=== PATIENT | male | born 1985 | race Caucasian/White ===

== ENCOUNTER 2018-02-23 06:58 | Day surgery (SDC) | payer BC ==
[2018-02-23] MEDS ORDERED: SOD CHLORIDE 0.9% 1,000 ML IV (09:00)
[2018-02-23] MEDS ORDERED: CEFAZOLIN 1 GM/50 ML (PMX) 50 ML IVPB (09:00)
[2018-02-23] MEDS ORDERED: morphine (1 MG/ML) 10ML SYRINGE IV ×2 (09:00)
[2018-02-23] MEDS ORDERED: LABETALOL HCL 20MG INJ IV (09:00)
[2018-02-23] MEDS ORDERED: ALBUTEROL 0.083% (NEB) 2.5 MG/3 ML AMP HHN (09:00)
[2018-02-23] MEDS ORDERED: MEPERIDINE 25 MG INJ IV (09:00)
[2018-02-23] MEDS ORDERED: ONDANSETRON 4 MG INJ IV (09:00)
[2018-02-23] MEDS ORDERED: FENTAnyl 50 MCG/ML VIAL IV ×2 (09:00)
[2018-02-23] MEDS ORDERED: HYDROmorphONE 1 MG/5 ML IV SYRINGE IV ×2 (09:00)
[2018-02-23] MEDS ORDERED: DIPHENHYDRAMINE 50 MG INJ IV (09:00)
[2018-02-23] MEDS ORDERED: OXYCODONE/ACETAMINOPHEN (5/325) TAB PO ×2 (09:00)
[2018-02-23] MEDS ORDERED: ONDANSETRON 4 MG INJ (09:38)
[2018-02-23] MEDS ORDERED: MIDAZOLAM 1 MG/ML 2 ML INJ (09:38)
[2018-02-23] MEDS ORDERED: CEFAZOLIN 1 GM INJ (09:38)
[2018-02-23] MEDS ORDERED: LIDOCAINE 2% (SDV) 5 ML INJ (09:38)
[2018-02-23] MEDS ORDERED: PROPOFOL 40 ML (09:38)
[2018-02-23] MEDS ORDERED: FENTAnyl 50 MCG/ML VIAL (09:38)
[2018-02-23] MEDS ORDERED: FAMOTIDINE 20 MG INJ (09:38)
[2018-02-23] MEDS ORDERED: KETOROLAC 30 MG INJ (09:38)
[2018-02-23] MEDS ORDERED: DEXAMETHASONE 4 MG/ML 1 ML INJ (09:38)
[2018-02-23] MEDS ORDERED: ROCURONIUM 50 MG INJ (09:49)
[2018-02-23] MEDS ORDERED: SUGAMMADEX SODIUM 200 MG/2 ML VIAL IV (10:32)
== END 2018-02-23 12:05 | disposition home or self-care (01) ==
LOC: SDS 06:58
DX: K62.89 Other specified diseases of anus and rectum (principal); E03.9 Hypothyroidism, unspecified
CPT/HCPCS: 45330

== ENCOUNTER 2018-12-07 10:31 | Day surgery (SDC) | payer BC ==
[2018-12-07] MEDS ORDERED: MIDAZOLAM 1 MG/ML 2 ML INJ (13:11)
[2018-12-07] MEDS ORDERED: FENTAnyl 50 MCG/ML VIAL (13:11)
[2018-12-07] MEDS ORDERED: HYDROGEN PEROXIDE 118 ML (13:15)
[2018-12-07] MEDS: BUPIVACAINE 0.5%/EPI (SDV) 30 ML INJ (13:44)
[2018-12-07] MEDS ORDERED: ROCURONIUM 50 MG INJ (14:06)
[2018-12-07] MEDS ORDERED: PROPOFOL 40 ML (14:06)
[2018-12-07] MEDS ORDERED: CEFAZOLIN 1 GM INJ (14:06)
[2018-12-07] MEDS ORDERED: LIDOCAINE 2% (SDV) 5 ML INJ (14:06)
[2018-12-07] MEDS ORDERED: ONDANSETRON 4 MG INJ (14:07)
[2018-12-07] MEDS ORDERED: GLYCOPYRROLATE 0.4 MG INJ (14:07)
[2018-12-07] MEDS ORDERED: NEOSTIGMINE 3 MG/3 ML SYRINGE (14:07)
[2018-12-07] MEDS ORDERED: HYDROmorphONE 1 MG/5 ML IV SYRINGE IV ×2 (14:30)
[2018-12-07] MEDS ORDERED: MEPERIDINE 25 MG INJ IV (14:30)
[2018-12-07] MEDS ORDERED: DIPHENHYDRAMINE 50 MG INJ IV (14:30)
[2018-12-07] MEDS ORDERED: ONDANSETRON 4 MG INJ IV (14:30)
[2018-12-07] MEDS ORDERED: METOCLOPRAMIDE 10 MG INJ IV (14:30)
[2018-12-07] MEDS: FENTAnyl 50 MCG/ML VIAL IV (14:42)
== END 2018-12-07 19:00 | disposition home or self-care (01) ==
LOC: SDS 10:31
DX: K60.2 Anal fissure, unspecified (principal); E03.9 Hypothyroidism, unspecified
CPT/HCPCS: 45330